=== PATIENT | male | born 1945 | race Caucasian/White ===

== ENCOUNTER 2019-01-12 07:55 | Day surgery (SDC) | payer OTHER ==
[~2019-01-12] VITALS: Ht 167.6 cm; Wt 83.5 kg
[~2019-01-12 07:55] MED LIST: ASPIR-TRIN325 MG PO; GINKGO60 MG PO; MULTI-VITAMIN1 EACH PO; NORVASC10 MG PO; THIAMINE HCL100 MG PO; VITAMIN D31000 UNI1 PO
--- NOTE | 2019-01-12 09:16 | NUR ---
01/12/19 0916 Gabbie Maloney 0907-PATIENT ARRIVED TO PACU ON 3L NC PLACED ON 2L. RR EVEN. PATIENT REACTIVE TO VERBAL STIMULI OPENING EYES VERY DROWSY BACK TO SLEEP. LAYING LEFT LATERAL IVF INFUSING. 0915-PATIENT AROUSING TO VERBAL STIMULI DENIES PAIN OR NAUSEA. REPOSITIONED SELF TO BACK
--- NOTE | 2019-01-13 05:57 | OR ---
[facility] [address], [place] [address] Signed DATE OF OPERATION: 01/12/2019 SURGEON: Kerline Saul MD PREOPERATIVE DIAGNOSES: 1. Personal history of colonic polyps in 2016. 2. Diverticulosis. POSTOPERATIVE DIAGNOSES: 1. [id number]-pb-bzcxblbl left-sided diverticulosis. 2. 4 mm polyp at 32 cm. 3. 4 mm polyp at 10 cm. 4. Minimal internal hemorrhoids. PROCEDURE: Colonoscopy with hot biopsy. ESTIMATED BLOOD LOSS: None. INDICATIONS: Dakota is a 73-year-old gentleman, asked to see me for a 2nd colonoscopy. In 2016, he had tubular adenomatous polyps removed. There were seven polyps removed in all. He is known to have diverticulosis as well. There is no family history of colon cancer or polyps. He has no lower GI complaints. He was asked to see me for his followup colonoscopy. I gave aDkota a pamphlet in the office on colonoscopy. We looked at that together along with the risks including, but not limited to gas, bloating, crampy abdominal pain, bleeding, perforation requiring surgery, and missed diagnosis. We also reviewed the written instructions for bowel prep. He held his aspirin 3 days prior to the procedure. He also understands the need for IV conscious sedation. He will have a ride to take him home. He expressed understanding and wished to proceed. PROCEDURE NOTE: Dakota was taken into our endoscopy suite and placed in the left lateral decubitus position. He was given a total of 8 mg of Versed and 150 mcg of fentanyl to cover the case. A digital rectal exam was performed and he had very minimal in the way of external hemorrhoids. Prostate was a little indurated, but no dominant nodules. The adult colonoscope was introduced and advanced all around into the cecum under direct visualization of camera without difficulty. His prep was quite good. We could easily see the appendiceal orifice and ileocecal valve. The scope was slowly withdrawn. We Electronically Signed By: KERLINE SAUL MD 01/13/19 0557 PATIENT NAME: DAKOTA GIBSON OPERATIVE REPORT DATE OF : 49 REPORT #: [id number] PHYSICIAN: KERLINE SAUL MD PCP: CHERRIE ELDRIDGE MD REPORT IS CONFIDENTIAL AND NOT TO BE RELEASED WITHOUT AUTHORIZATION [facility] [address], [place] [address] Signed took pictures throughout for photodocumentation. The above-mentioned polyps were easily removed with the help of hot biopsy forceps. He does have diverticula in the left and sigmoid colon. They were moderate in size, few in number, and scattered about. Once in the rectum, the scope was retroflexed. He does have some very small internal hemorrhoid columns. After this, the gas was suctioned out and colonoscope removed. Dakota tolerated the procedure quite well. RECOMMENDATIONS: Dakota will follow up in my office in 7 to 14 days to review his results. He can resume his aspirin in 1 week. Kerline Saul MD ALB/CORIL /[id number] cc: MD Kerline Rodrigez MD Copies: CHERRIE ELDRIDGE MD, ANDREW L MD ~ Electronically Signed By: KERLINE SAUL MD 01/13/19 0557 PATIENT NAME: DAKOTA GIBSON OPERATIVE REPORT DATE OF : 49 REPORT #: [id number] PHYSICIAN: KERLINE SAUL MD PCP: CHERRIE ELDRIDGE MD REPORT IS CONFIDENTIAL AND NOT TO BE RELEASED WITHOUT AUTHORIZATION
--- NOTE | 2019-01-13 15:25 | PATH ---
[facility] [address] [place], [place] [address] Signed SPECIMEN(S): A COLON POLYP AT 10 CM SPECIMEN(S): B COLON POLYP AT 32 CM SPECIMEN SOURCE: A. COLON POLYP AT 10 CM B. COLON POLYP AT 32 CM CLINICAL HISTORY: No preop or clinical information is given on requisition. MICROSCOPIC DESCRIPTION: Histologic sections of all submitted blocks are examined by light microscopy. These findings, together with the gross examination, support the pathologic diagnosis. FINAL PATHOLOGIC DIAGNOSIS: A. Mucosa, colon at 10 cm, biopsy: - Surface features suggestive but not entirely diagnostic of hyperplastic polyp (See comment). B. Mucosa, colon at 32 cm, biopsy: - Surface features suggestive but not entirely diagnostic of hyperplastic polyp (See comment). COMMENT: A and B Multiple levels over three slides are examined. No adenomatous or full thickness hyperplastic change is seen. LJA:cml:C2NR GROSS DESCRIPTION: Two specimens are received in two containers, labeled "HIGINIO". A. The specimen, labeled "HIGINIO, #1 colon polyp at 10 cm," is received in formalin and consists of one hinson soft tissue fragment that measures 0.4 cm in greatest dimension. The specimen is entirely submitted n cassette (A1). B. The specimen, labeled "HIGINIO, #2 colon polyp at 32 cm," is received in formalin and consistent of one pink-hinson soft tissue fragment that measures 0.3 cm in greatest dimension. The specimen is entirely submitted in cassette (B1). FB (under the direct supervision of a pathologist). The Gross Description was prepared using a voice recognition system. The report was reviewed for accuracy; however, sound-alike word errors, addition and/or deletions may occur. If there is any PATIENT NAME: DAKOTA GIBSON PATHOLOGY DATE OF : 49 REPORT #: [id number] PHYSICIAN: NADIYA ZULUAGA PCP: CHERRIE ELDRIDGE MD REPORT IS CONFIDENTIAL AND NOT TO BE RELEASED WITHOUT AUTHORIZATION [facility] [address] [place] [address] Signed question about this report, please contact Client Services. PERFORMING LABORATORY: The technical component was [place] [address] (Auto Service Writer: Cat Murphy MD; CLIA# [id number]). Professional interpretation was performed by [facility], [address] [address] (Auto Service Writer: Feliz Hall MD; CLIA# [id number]). Diagnostician: Feliz Hall MD Pathologist Electronically Signed 01/13/2019 Copies: ~ PATIENT NAME: DAKOTA GIBSON PATHOLOGY DATE OF : 49 REPORT #: [id number] PHYSICIAN: [facility] PCP: CHERREI ELDRIDGE MD REPORT IS CONFIDENTIAL AND NOT TO BE RELEASED WITHOUT AUTHORIZATION
== END 2019-01-12 09:57 | disposition home or self-care (01) ==
LOC: OPS 07:55 → DS 09:00 → OPS 09:00
PROVIDERS: Colon & Rectal Surgery
PROC: 0DBE8ZZ Excision of Large Intestine, Via Natural or Artificial Opening Endoscopic (ICD-10-PCS; principal; 2019-01-12 09:00)
DX: Z12.11 Encounter for screening for malignant neoplasm of colon (principal); K64.8 Other hemorrhoids; K57.30 Diverticulosis of large intestine without perforation or abscess without bleeding; K63.5 Polyp of colon; N42.89 Other specified disorders of prostate; I10 Essential (primary) hypertension; Z86.010 Personal history of colon polyps; Z88.8 Allergy status to other drugs, medicaments and biological substances; Z79.82 Long term (current) use of aspirin; Z79.899 Other long term (current) drug therapy
CPT/HCPCS: 99153; G0500; J2250; J3010; J7120